=== PATIENT | male | born 1950 ===

== ENCOUNTER 2023-05-28 13:11 | Outpatient (CLI) | payer OTHER | END 2023-05-28 13:20 | disposition home or self-care (01) | LOC: TOM 13:11 | PROVIDERS: ATTEND Internal Medicine Pulmonary Disease | DX: J43.2 Centrilobular emphysema (principal); Z72.0 Tobacco use ==

== ENCOUNTER → 2023-06-02 | Day surgery (SDC) | payer OTHER ==
[~2023-06-02] MED LIST: DIPHENHYDRAMINE HCL 50 MG/ML VIAL 1ML IV ONE; MIDAZOLAM HCL 2 MG/2 ML VIAL IV ONE; MORPHINE SULFATE 2 MG/ML CARTRIDGE IV ONE; fentaNYL CITRATE 50 MCG/ML AMPUL IV PUSH ONE
== END | disposition home or self-care (01) ==
LOC: ADM 05-28 11:30 → CIR.AMB 05:25
PROVIDERS: ATTEND Colon & Rectal Surgery
DX: D12.4 Benign neoplasm of descending colon (principal); D12.3 Benign neoplasm of transverse colon; K63.5 Polyp of colon; Z86.010 Personal history of colon polyps

== ENCOUNTER 2024-08-22 09:13 | Outpatient (CLI) | payer OTHER | END 2024-08-22 09:35 | disposition home or self-care (01) | LOC: RAD 09:13 | PROVIDERS: ATTEND Internal Medicine Pulmonary Disease | DX: R91.1 Solitary pulmonary nodule (principal); J43.2 Centrilobular emphysema ==